=== PATIENT | male | born 1980 | race Caucasian/White ===

== ENCOUNTER 2024-11-15 19:05 | Inpatient (IN) ==
[2024-11-15] MEDS ORDERED: IOPAMIDOL 100 ML BOTTLE IV ONE (19:06)
[2024-11-15 20:11] LABS: Basophils # (Auto) 0.03 K/mcL (0.00-0.30); Basophils % (Auto) 0.2 % (0.0-2.0); Eosinophils # (Auto) 0.06 K/mcL (0.00-0.70); Eosinophils % (Auto) 0.3 % (0.0-7.0); Hematocrit 49.2 % (40.1-51.0); Hemoglobin 16.3 g/dL (13.7-17.5); Lymphocytes # (Auto) 0.92 K/mcL (1.50-4.80); Lymphocytes % (Auto) 5.4 % (15.5-49.0); Mean Corpuscular HGB Conc 33.1 g/dL (31.0-36.0); Monocytes # (Auto) 0.96 K/mcL (0.10-0.90); Monocytes % (Auto) 5.6 % (1.0-12.0); Neutrophils % (Auto) 88.2 % (38.0-78.0); Platelet Count 230 K/mcL (140-440); RBC 5.38 M/mcL (4.63-6.08); WBC 17.2 K/mcL (4.5-11.0)
[2024-11-15] MEDS: 0.9 % SODIUM CHLORIDE 1,000 ML IV ONE (20:31)
[2024-11-15] MEDS: diphenhydrAMINE 50 MG/ML VIAL IV ONE (20:31)
[2024-11-15] MEDS: METOCLOPRAMIDE 10 MG/2 ML VIAL IV ONE (20:32)
[2024-11-15] MEDS: MAG HYDROX/AL HYDROX/SIMETH 30 ML ORAL.SUSP PO ONE (20:33)
[2024-11-15 20:46] LABS: ALT/SGPT 868 U/L (<40); AST/SGOT 649 U/L (<40); Albumin 4.5 gm/dL (3.2-5.2); Albumin/Globulin Ratio 1.5 (1.0-2.3); Alkaline Phosphatase 125 U/L (39-117); Anion Gap 13.0 (8.0-16.0); Bilirubin,Total 4.7 mg/dL (0.1-1.0); Blood Urea Nitrogen 14 mg/dL (6-20); Calcium 9.6 mg/dL (8.6-10.4); Carbon Dioxide 24 mmol/L (22-30); Chloride 101 mmol/L (96-108); Globulin 3.0 gm/dL (2.2-3.7); Glucose 126 mg/dL (70-105); Potassium 3.8 mmol/L (3.3-5.1); Sodium 138 mmol/L (133-145)
[2024-11-15 20:54] LABS: Bilirubin,Urine Moderate mg/dL (Negative); Color,Urine Yellow; Glucose,Urine (UA) Negative (Negative); Ketones,Urine Negative (Negative); Leukocyte Esterase,Urine Negative /uL (Negative); PH,Urine 6.0 (5.0-9.0); Protein,Urine Trace mg/dL (Negative); Specific Gravity,Urine 1.015 (1.000-1.035); Urobilinogen,Urine 2.0 mg/dL
[2024-11-15] MEDS ORDERED: ONDANSETRON 4 MG/2 ML VIAL IV PRN (23:33)
[2024-11-15] MEDS: LACTATED RINGERS 1,000 ML IV ONE (23:43)
[2024-11-16] MEDS: LACTATED RINGERS 1,000 ML IV SCH (00:26)
[2024-11-16 06:31] LABS: Basophils # (Auto) 0.03 K/mcL (0.00-0.30); Basophils % (Auto) 0.2 % (0.0-2.0); Eosinophils # (Auto) 0.03 K/mcL (0.00-0.70); Eosinophils % (Auto) 0.2 % (0.0-7.0); Hematocrit 44.2 % (40.1-51.0); Hemoglobin 14.6 g/dL (13.7-17.5); Lymphocytes # (Auto) 1.07 K/mcL (1.50-4.80); Lymphocytes % (Auto) 6.4 % (15.5-49.0); Mean Corpuscular HGB Conc 33.0 g/dL (31.0-36.0); Monocytes # (Auto) 1.57 K/mcL (0.10-0.90); Monocytes % (Auto) 9.4 % (1.0-12.0); Neutrophils % (Auto) 83.6 % (38.0-78.0); Platelet Count 199 K/mcL (140-440); RBC 4.82 M/mcL (4.63-6.08); WBC 16.8 K/mcL (4.5-11.0)
[2024-11-16 07:17] LABS: ALT/SGPT 732 U/L (<40); AST/SGOT 377 U/L (<40); Albumin 4.0 gm/dL (3.2-5.2); Albumin/Globulin Ratio 1.5 (1.0-2.3); Alkaline Phosphatase 134 U/L (39-117); Anion Gap 11.0 (8.0-16.0); Bilirubin,Direct 3.4 mg/dL (<0.3); Bilirubin,Total 5.5 mg/dL (0.1-1.0); Blood Urea Nitrogen 11 mg/dL (6-20); Calcium 9.1 mg/dL (8.6-10.4); Carbon Dioxide 23 mmol/L (22-30); Chloride 102 mmol/L (96-108); Globulin 2.6 gm/dL (2.2-3.7); Glucose 126 mg/dL (70-105); Phosphorous 2.9 mg/dL (2.5-4.5); Potassium 3.9 mmol/L (3.3-5.1); Sodium 136 mmol/L (133-145); Triglycerides 56 mg/dL (<150); Uric Acid 3.4 mg/dL (2.5-8.0)
[2024-11-16] MEDS ORDERED: ONDANSETRON 4 MG/2 ML VIAL IV PRN (08:29)
[2024-11-16] MEDS ORDERED: POLYETHYLENE GLYCOL 3350 17 GM PACKET PO PRN (08:29)
[2024-11-16] MEDS ORDERED: SENNOSIDES 1 TABLET PO PRN (08:29)
[2024-11-16] MEDS ORDERED: MAGNESIUM SULFATE 2 GM/50 ML BAG IV PRN (08:29)
[2024-11-16] MEDS ORDERED: IPRATROPIUM/ALBUTEROL 3 ML AMPUL.NEB NEB PRN (08:29)
[2024-11-16] MEDS ORDERED: POTASSIUM CHLORIDE 20 MEQ TABLET PO PRN ×2 (08:29)
[2024-11-16] MEDS ORDERED: ACETAMINOPHEN 325 MG TABLET PO PRN (08:29)
[2024-11-16] MEDS ORDERED: POTASSIUM CHLORIDE 40 MEQ in DEXTROSE 5% IN WATER 500 ML IV PRN (08:29)
[2024-11-16] MEDS ORDERED: METOCLOPRAMIDE 10 MG/2 ML VIAL IV PRN (08:29)
[2024-11-16] MEDS: PIPERACILLIN SODIUM/TAZOBACTAM 4.5 GM in DEXTROSE 5% IN WATER 50 ML IV ONE (09:01)
[2024-11-16] MEDS: HEPARIN 5,000 UNIT/ML VIAL SQ SCH (09:10)
[2024-11-16] MEDS: DOCUSATE SODIUM 100 MG CAPSULE PO SCH (10:27)
[2024-11-16] MEDS: PIPERACILLIN SODIUM/TAZOBACTAM 4.5 GM in DEXTROSE 5% IN WATER 100 ML IV SCH (13:30)
[2024-11-16] MEDS: 0.9 % SODIUM CHLORIDE 10 ML SYRINGE IV SCH (14:35)
[2024-11-17 06:34] LABS: Basophils # (Auto) 0.04 K/mcL (0.00-0.30); Basophils % (Auto) 0.3 % (0.0-2.0); Eosinophils # (Auto) 0.14 K/mcL (0.00-0.70); Eosinophils % (Auto) 1.1 % (0.0-7.0); Hematocrit 44.8 % (40.1-51.0); Hemoglobin 14.9 g/dL (13.7-17.5); Lymphocytes # (Auto) 1.43 K/mcL (1.50-4.80); Lymphocytes % (Auto) 10.8 % (15.5-49.0); Mean Corpuscular HGB Conc 33.3 g/dL (31.0-36.0); Monocytes # (Auto) 1.19 K/mcL (0.10-0.90); Monocytes % (Auto) 8.9 % (1.0-12.0); Neutrophils % (Auto) 78.6 % (38.0-78.0); Platelet Count 192 K/mcL (140-440); RBC 4.89 M/mcL (4.63-6.08); WBC 13.3 K/mcL (4.5-11.0)
[2024-11-17 07:33] LABS: ALT/SGPT 436 U/L (<40); AST/SGOT 110 U/L (<40); Albumin 3.8 gm/dL (3.2-5.2); Albumin/Globulin Ratio 1.2 (1.0-2.3); Alkaline Phosphatase 133 U/L (39-117); Anion Gap 13.0 (8.0-16.0); Bilirubin,Direct 0.7 mg/dL (<0.3); Bilirubin,Total 1.7 mg/dL (0.1-1.0); Blood Urea Nitrogen 12 mg/dL (6-20); Calcium 9.2 mg/dL (8.6-10.4); Carbon Dioxide 22 mmol/L (22-30); Chloride 101 mmol/L (96-108); Globulin 3.3 gm/dL (2.2-3.7); Glucose 98 mg/dL (70-105); Phosphorous 2.6 mg/dL (2.5-4.5); Potassium 3.8 mmol/L (3.3-5.1); Sodium 136 mmol/L (133-145); Triglycerides 132 mg/dL (<150); Uric Acid 2.6 mg/dL (2.5-8.0)
[2024-11-18 06:05] LABS: Basophils # (Auto) 0.05 K/mcL (0.00-0.30); Basophils % (Auto) 0.4 % (0.0-2.0); Eosinophils # (Auto) 0.16 K/mcL (0.00-0.70); Eosinophils % (Auto) 1.3 % (0.0-7.0); Hematocrit 45.8 % (40.1-51.0); Hemoglobin 15.2 g/dL (13.7-17.5); Lymphocytes # (Auto) 1.80 K/mcL (1.50-4.80); Lymphocytes % (Auto) 14.2 % (15.5-49.0); Mean Corpuscular HGB Conc 33.2 g/dL (31.0-36.0); Monocytes # (Auto) 1.11 K/mcL (0.10-0.90); Monocytes % (Auto) 8.8 % (1.0-12.0); Neutrophils % (Auto) 74.7 % (38.0-78.0); Platelet Count 211 K/mcL (140-440); RBC 4.99 M/mcL (4.63-6.08); WBC 12.6 K/mcL (4.5-11.0)
[2024-11-18 06:27] LABS: ALT/SGPT 288 U/L (<40); AST/SGOT 40 U/L (<40); Albumin 3.9 gm/dL (3.2-5.2); Albumin/Globulin Ratio 1.3 (1.0-2.3); Alkaline Phosphatase 119 U/L (39-117); Anion Gap 14.0 (8.0-16.0); Bilirubin,Direct 0.4 mg/dL (<0.3); Bilirubin,Total 0.8 mg/dL (0.1-1.0); Blood Urea Nitrogen 13 mg/dL (6-20); Calcium 9.3 mg/dL (8.6-10.4); Carbon Dioxide 21 mmol/L (22-30); Chloride 100 mmol/L (96-108); Globulin 3.1 gm/dL (2.2-3.7); Glucose 107 mg/dL (70-105); Phosphorous 3.3 mg/dL (2.5-4.5); Potassium 3.6 mmol/L (3.3-5.1); Sodium 135 mmol/L (133-145); Triglycerides 148 mg/dL (<150); Uric Acid 3.0 mg/dL (2.5-8.0)
[2024-11-18] MEDS: 0.9 % SODIUM CHLORIDE 1,000 ML IV ONE (23:55)
[2024-11-19] MEDS ORDERED: ROCURONIUM 10 MG/ML ML IV ONE ×2 (08:43→10:13)
[2024-11-19] MEDS ORDERED: LIDOCAINE 2% PF 5 ML VIAL ONE (08:43)
[2024-11-19] MEDS ORDERED: ONDANSETRON 4 MG/2 ML VIAL ONE (08:43)
[2024-11-19] MEDS ORDERED: fentaNYL 100 MCG/2 ML VIAL ONE ×2 (08:43→09:38)
[2024-11-19] MEDS ORDERED: MAGNESIUM SULFATE 2 GM/50 ML BAG IV ONE (08:43)
[2024-11-19] MEDS ORDERED: PROPOFOL 200 MG/20 ML VIAL IV ONE (08:43)
[2024-11-19] MEDS ORDERED: DEXAMETHASONE 10 MG/ML VIAL ONE (08:43)
[2024-11-19] MEDS ORDERED: SCOPOLAMINE 1 PATCH PATCH TOPICAL PRN (09:00)
[2024-11-19] MEDS ORDERED: IPRATROPIUM/ALBUTEROL 3 ML AMPUL.NEB NEB PRN ×2 (09:00→11:18)
[2024-11-19] MEDS ORDERED: TRANEXAMIC ACID 1,000 MG/10 ML VIAL ONE (10:12)
[2024-11-19] MEDS ORDERED: HYDROmorphone 0.5 MG/0.5 ML SYRINGE ONE (10:43)
[2024-11-19] MEDS ORDERED: SUGAMMADEX SODIUM 200 MG/2 ML VIAL IV ONE (11:09)
[2024-11-19] MEDS ORDERED: ONDANSETRON 4 MG/2 ML VIAL IV PRN (11:18)
[2024-11-19] MEDS ORDERED: HYDROmorphone 0.5 MG/0.5 ML SYRINGE IV PRN (11:18)
[2024-11-19] MEDS ORDERED: fentaNYL 100 MCG/2 ML VIAL IV PRN (11:18)
[2024-11-19] MEDS ORDERED: LACTATED RINGERS 250 ML IV PRN (11:18)
[2024-11-19] MEDS ORDERED: METHOCARBAMOL 1,000 MG/10 ML VIAL IV PRN (11:18)
[2024-11-19] MEDS ORDERED: diphenhydrAMINE 50 MG/ML VIAL IV PRN (11:18)
[2024-11-19] MEDS ORDERED: MEPERIDINE 25 MG/ML VIAL IV PRN (11:18)
[2024-11-19] MEDS ORDERED: NALOXONE HCL 0.4 MG/ML VIAL IV PRN (11:18)
[2024-11-19] MEDS: ACETAMINOPHEN 1,000 MG/100 ML BAG IV ONE (11:55)
[2024-11-19] MEDS: HYDROmorphone 0.5 MG/0.5 ML SYRINGE IV PRN (12:27)
[2024-11-19] MEDS: 0.9 % SODIUM CHLORIDE 1,000 ML IV SCH (12:29)
[2024-11-19] MEDS: LACTATED RINGERS 1,000 ML IV SCH (12:42)
[2024-11-19] MEDS: METHOCARBAMOL 1,000 MG/10 ML VIAL IV PRN (13:33)
[2024-11-19] MEDS: 0.9 % SODIUM CHLORIDE 10 ML SYRINGE IV SCH (15:25)
[2024-11-19] MEDS: BENZOCAINE/MENTHOL 1 LOZENGE PO PRN (16:56)
[2024-11-20 06:02] LABS: Basophils # (Auto) 0.03 K/mcL (0.00-0.30); Basophils % (Auto) 0.2 % (0.0-2.0); Eosinophils # (Auto) 0.09 K/mcL (0.00-0.70); Eosinophils % (Auto) 0.6 % (0.0-7.0); Hematocrit 40.9 % (40.1-51.0); Hemoglobin 13.9 g/dL (13.7-17.5); Lymphocytes # (Auto) 2.25 K/mcL (1.50-4.80); Lymphocytes % (Auto) 13.9 % (15.5-49.0); Mean Corpuscular HGB Conc 34.0 g/dL (31.0-36.0); Monocytes # (Auto) 1.42 K/mcL (0.10-0.90); Monocytes % (Auto) 8.8 % (1.0-12.0); Neutrophils % (Auto) 76.1 % (38.0-78.0); Platelet Count 256 K/mcL (140-440); RBC 4.53 M/mcL (4.63-6.08); WBC 16.2 K/mcL (4.5-11.0)
[2024-11-20 06:32] LABS: ALT/SGPT 136 U/L (<40); AST/SGOT 25 U/L (<40); Albumin 3.6 gm/dL (3.2-5.2); Albumin/Globulin Ratio 1.2 (1.0-2.3); Alkaline Phosphatase 91 U/L (39-117); Anion Gap 12.0 (8.0-16.0); Bilirubin,Direct 0.4 mg/dL (<0.3); Bilirubin,Total 0.7 mg/dL (0.1-1.0); Blood Urea Nitrogen 7 mg/dL (6-20); Calcium 8.8 mg/dL (8.6-10.4); Carbon Dioxide 23 mmol/L (22-30); Chloride 101 mmol/L (96-108); Globulin 3.0 gm/dL (2.2-3.7); Glucose 126 mg/dL (70-105); Phosphorous 3.2 mg/dL (2.5-4.5); Potassium 3.8 mmol/L (3.3-5.1); Sodium 136 mmol/L (133-145); Triglycerides 106 mg/dL (<150); Uric Acid 2.8 mg/dL (2.5-8.0)
[2024-11-20] MEDS: metroNIDAZOLE 500 MG/100 ML BAG IV SCH (08:25)
[2024-11-20] MEDS: cefTRIAXone 2 GM in DEXTROSE 5% IN WATER 50 ML IV SCH (09:38)
[2024-11-20 09:42] LABS: RBC Morphology NORMAL (Normal)
[2024-11-21 05:53] LABS: Basophils # (Auto) 0.04 K/mcL (0.00-0.30); Basophils % (Auto) 0.3 % (0.0-2.0); Eosinophils # (Auto) 0.27 K/mcL (0.00-0.70); Eosinophils % (Auto) 2.1 % (0.0-7.0); Hematocrit 40.6 % (40.1-51.0); Hemoglobin 13.7 g/dL (13.7-17.5); Lymphocytes # (Auto) 2.18 K/mcL (1.50-4.80); Lymphocytes % (Auto) 16.8 % (15.5-49.0); Mean Corpuscular HGB Conc 33.7 g/dL (31.0-36.0); Monocytes # (Auto) 1.28 K/mcL (0.10-0.90); Monocytes % (Auto) 9.9 % (1.0-12.0); Neutrophils % (Auto) 70.4 % (38.0-78.0); Platelet Count 232 K/mcL (140-440); RBC 4.45 M/mcL (4.63-6.08); WBC 13.0 K/mcL (4.5-11.0)
[2024-11-21 08:43] LABS: ALT/SGPT 101 U/L (<40); AST/SGOT 21 U/L (<40); Albumin 3.7 gm/dL (3.2-5.2); Albumin/Globulin Ratio 1.2 (1.0-2.3); Alkaline Phosphatase 84 U/L (39-117); Anion Gap 11.0 (8.0-16.0); Bilirubin,Direct 0.3 mg/dL (<0.3); Bilirubin,Total 0.6 mg/dL (0.1-1.0); Blood Urea Nitrogen 8 mg/dL (6-20); Calcium 9.2 mg/dL (8.6-10.4); Carbon Dioxide 26 mmol/L (22-30); Chloride 100 mmol/L (96-108); Globulin 3.1 gm/dL (2.2-3.7); Glucose 112 mg/dL (70-105); Phosphorous 3.2 mg/dL (2.5-4.5); Potassium 3.8 mmol/L (3.3-5.1); Sodium 137 mmol/L (133-145); Triglycerides 111 mg/dL (<150); Uric Acid 3.4 mg/dL (2.5-8.0)
[2024-11-21 13:51] VITALS: TEMP 98.4; O2SAT 98
== END 2024-11-21 13:50 | disposition home or self-care (01) | DRG 414 ==
LOC: ED 19:05 → MEDSUR 11-16
PROVIDERS: ADMIT Internal Medicine; ATTEND Internal Medicine